=== PATIENT | male | born 1975 | race Caucasian/White ===

== ENCOUNTER 2019-05-16 20:14 | Emergency (ER) | payer OTHER ==
[~2019-05-16] VITALS: Ht 180.3 cm; Wt 88.5 kg
[2019-05-16 21:09] VITALS: BP_SYST 144
--- NOTE | 2019-05-17 01:18 | NUR ---
Pt ambulatory to bed 1 for evaluation
--- NOTE | 2019-05-17 01:25 | NUR ---
Patient came to ER because of lower back pain 01/04. Per patient this is reoccuring and has taken flexeril 10 mg at 1900 and ibuprophen 600 mg. Patient describes pain on the lower right back pain and has advised of his herniated disc. Patient is laying on the gurney with at bedside. No signs of acute distress.
--- NOTE | 2019-05-17 01:45 | NUR ---
ER at bedside examining patient.
[2019-05-17] MEDS ORDERED: KETOROLAC TROMETHAMINE 60 MG/2 ML VIAL IM ONE (02:00)
[2019-05-17] MEDS ORDERED: DIAZEPAM 5 MG TABLET (VALIUM) PO ONE (02:00)
--- NOTE | 2019-05-17 02:50 | NUR ---
Patient given written and verbal discharge instructions and verbalizes understanding. ER MD discussed with patient the results and treatment provided. Patient in stable condition. ID arm band removed. Patient educated on pain management and to follow up with PMD. Pain Scale 5/10. Opportunity for questions provided and answered. Medication side effect fact sheet provided.
[2019-05-17 02:51] VITALS: BP_SYST 144
== END 2019-05-17 02:50 | disposition home or self-care (01) ==
LOC: SED 20:14
DX: G89.29 Other chronic pain (principal); M54.5 Low back pain
CPT/HCPCS: 96372; 99283; J1885